=== PATIENT | male | born 1940 | race Caucasian/White ===

== ENCOUNTER 2016-07-29 07:16 | Day surgery (SDC) | payer MEDICARE, BC ==
--- NOTE | ~2016-07-29 | EGD ---
EGD REPORT [facility] [place] [address] [address] NAME: CORNELIUS HUA : [birth year] STATUS : REG [facility] [place] PAT#: [id number] AGE: 76 ADM/REG DATE : 07/29/16 MR#: [id number] REPORT SERV DATE: 07/29/16 DICTATED BY: GIO LIMON DATE: 07/29/16 REPORT STATUS : Draft TRANSCRIBED BY: [facility] DATE: 07/29/16 Endoscopy Center Patient Name: Cornelius Hua Date of : 1940 Attending MD: GIO LIMON MD Procedure Date No Time: 07/29/2016 Procedure: Colonoscopy Indications: Surveillance: Personal history of adenomatous polyps on last colonoscopy > 3 years ago Referring MD: LIAM MAYS Medicines: Propofol per Anesthesia Complications: No immediate complications. Procedure: Pre-Anesthesia Assessment: - ASA Grade Assessment: III - A patient with severe systemic disease. After I obtained informed consent, the scope was passed under direct vision. Throughout the procedure, the patient's blood pressure, pulse, and oxygen saturations were monitored continuously. The CF [id number] was introduced through the anus and advanced to the terminal ileum. The colonoscopy was performed without difficulty. The patient tolerated the procedure well. The quality of the bowel preparation was good. Findings: The perianal and digital rectal examinations were normal. The terminal ileum appeared normal. The colon (entire examined portion) appeared normal. A sessile polyp was found in the cecum. The polyp was 5 mm in size. The polyp was removed with a cold snare. Resection and retrieval were complete. Non-bleeding internal hemorrhoids were found during retroflexion and were mild, small and Grade I (internal hemorrhoids that do not prolapse). Impression: - The examined portion of the ileum was normal. - The entire examined colon is normal. - One 5 mm polyp in the cecum. Resected and retrieved. - Non-bleeding internal hemorrhoids. Recommendation: - Patient has a contact number available for emergencies. The signs and symptoms of potential delayed complications were discussed with the patient. Return to normal activities tomorrow. Written discharge instructions were provided to the patient. - Clear liquid diet today. EGD REPORT [address] [address] NAME: CORNELIUS HUA : [birth year] STATUS : REG [facility]#: [id number] AGE: 76 ADM/REG DATE : 07/29/16 MR#: [id number] REPORT SERV DATE: 07/29/16 DICTATED BY: GIO LIMON DATE: 07/29/16 REPORT STATUS : Draft TRANSCRIBED BY: [employer] DATE: 07/29/16 - diet is clear liquid today, full liquid tomorrow, soft mushy food the next day, and resume usual diet the day after that. - Continue present medications. - Await pathology results. - Repeat colonoscopy in 3 - 5 years for surveillance based on pathology results. - Return to my office as previously scheduled. - Discharge patient to home. Procedure Code(s): --- Professional --- 71263, Colonoscopy, flexible, proximal to splenic flexure; with removal of tumor(s), polyp(s), or other lesion(s) by snare technique Diagnosis Code(s): --- Professional --- K64.0, First degree hemorrhoids D12.0, Benign neoplasm of cecum Z86.010, Personal history of colonic polyps CPT copyright 2013 [employer]. All rights reserved. The codes documented in this report are preliminary and upon manager cath lab review may be revised to meet current compliance requirements. Gio Limon MD GIO LIMON MD 07/29/2016 10:13 AM This report has been signed electronically. Number of Addenda: 0 Note Initiated On: 07/29/2016 9:01 AM Scope Withdrawal Time 0 hours 11 minutes 20 seconds [address] [id number]
--- NOTE | ~2016-07-29 | EGD ---
EGD REPORT [facility] [address] [address] NAME: CORNELIUS HUA : 36 STATUS : [place] [facility] [place] PAT#: [id number] AGE: 76 ADM/REG DATE : 07/29/16 MR#: [id number] REPORT SERV DATE: 07/29/16 DICTATED BY: GIO LIMON DATE: 07/29/16 REPORT STATUS : Draft [facility]ANSCRIBED BY: [facility] DATE: 07/29/16 Endoscopy Center Patient Name: Cornelius Hua Date of : 1940 Attending MD: GIO LIMON MD Procedure Date No Time: 07/29/2016 Procedure: Upper GI endoscopy Indications: Dysphagia, Gastro-esophageal reflux disease Referring MD: LIAM MAYS Medicines: Propofol per Anesthesia Complications: No immediate complications. Procedure: Pre-Anesthesia Assessment: - ASA Grade Assessment: III - A patient with severe systemic disease. After obtaining informed consent, the endoscope was passed under direct vision. Throughout the procedure, the patient's blood pressure, pulse, and oxygen saturations were monitored continuously. The GIF [id number] was introduced through the mouth, and advanced to the third part of duodenum. The upper GI endoscopy was accomplished without difficulty. The patient tolerated the procedure well. Findings: The examined esophagus was normal. A benign-appearing, intrinsic mild stenosis was found at the gastroesophageal junction and was traversed. A guidewire was placed and the scope was withdrawn. Dilation was performed with a Savary dilator with mild resistance at 60 Fr. The esophagus looked satisfactory post dilation A small hiatus hernia was present. Seen on retroflexion, done prior to dilation Diffuse mild inflammation characterized by congestion (edema) and erythema was found in the entire examined stomach. Biopsies were taken with a cold forceps for Helicobacter pylori testing. Localized mild inflammation characterized by congestion (edema) and erythema was found in the duodenal bulb. The 2nd part of the duodenum and 3rd part of the duodenum were normal. Impression: - Normal esophagus. - Benign-appearing esophageal stricture. Dilated. - Hiatus hernia. - Gastritis. Biopsied. - Duodenitis. - Normal 2nd part of the duodenum and 3rd part of the EGD REPORT [address] [place]. [address] NAME: CORNELIUS HUA : [birth year] STATUS : [place] [facility] [place] PAT#: [id number] AGE: 76 ADM/REG DATE : 07/29/16 MR#: [id number] REPORT SERV DATE: 07/29/16 DICTATED BY: GIO LIMON DATE: 07/29/16 REPORT STATUS : Draft TRANSCRIBED BY: [employer] DATE: 07/29/16 duodenum. Recommendation: - Patient has a contact number available for emergencies. The signs and symptoms of potential delayed complications were discussed with the patient. Return to normal activities tomorrow. Written discharge instructions were provided to the patient. - diet is clear liquid today, full liquid tomorrow, soft mushy food the next day, and resume usual diet the day after that. - Await pathology results. - Continue present medications. - Use Prilosec (omeprazole) 40 mg PO daily. - take 30-60 minutes before breakfast or supper - Return to my office as previously scheduled. - Discharge patient to home. Procedure Code(s): --- Professional --- 83244, Esophagogastroduodenoscopy, flexible, transoral; with insertion of guide wire followed by passage of dilator(s) through esophagus over guide wire 86540, Esophagogastroduodenoscopy, flexible, transoral; with biopsy, single or multiple Diagnosis Code(s): --- Professional --- K22.2, Esophageal obstruction K44.9, Diaphragmatic hernia without obstruction or gangrene K29.70, Gastritis, unspecified, without bleeding K29.80, Duodenitis without bleeding R13.10, Dysphagia, unspecified K21.9, Gastro-esophageal reflux disease without esophagitis CPT copyright 2013 [employer]. All rights reserved. The codes documented in this report are preliminary and upon general dentist review may be revised to meet current compliance requirements. Gio Limon MD GIO LIMON MD 07/29/2016 10:11 AM This report has been signed electronically. Number of Addenda: 0 EGD REPORT [facility] [address] [place]. [address] NAME: CORNELIUS HUA : [birth year] STATUS : REG [facility] [place] PAT#: [id number] AGE: 76 ADM/REG DATE : 07/29/16 MR#: [id number] REPORT SERV DATE: 07/29/16 DICTATED BY: GIO LIMON DATE: 07/29/16 REPORT STATUS : Draft [facility]: [facility] DATE: 07/29/16 Note Initiated On: 07/29/2016 9:14 AM Scope Withdrawal Time 0 hours 0 minutes 0 seconds [address] [facility] [place] [address]
[~2016-07-29 07:16] MED LIST: ASAB PO; AVODART PO; CO Q-10100 MG PO; COUMADIN7.5 MG PO; CRESTOR10 PO; CYANO1000T PO; ELIQUIS 5 MG TAB5 MG PO; FLOMAX4 PO; KRILLOIL PO; LAN25 PO; MOVE FREE PO; MULTIPLE VIT PO; PLAVIX PO; TRAZ50 PO; VITAMIN K PO; ZANTAC150 MG PO; ZESTRIL10 MG PO; ZESTRIL30 MG PO; [UNRECOGNIZED DRUG - OTHER] PO
== END 2016-07-29 23:59 | disposition home health service (06) ==
LOC: DMU 07:16
PROVIDERS: Internal Medicine Gastroenterology
PROC: 0D748ZZ Dilation of Esophagogastric Junction, Via Natural or Artificial Opening Endoscopic (ICD-10-PCS; principal; 2016-07-29 08:30)
PROC: 0DB68ZX Excision of Stomach, Via Natural or Artificial Opening Endoscopic, Diagnostic (ICD-10-PCS; 2016-07-29 08:30)
PROC: 0DBH8ZZ Excision of Cecum, Via Natural or Artificial Opening Endoscopic (ICD-10-PCS; 2016-07-29 08:30)
DX: Z12.11 Encounter for screening for malignant neoplasm of colon (principal); D12.0 Benign neoplasm of cecum; K22.2 Esophageal obstruction; K44.9 Diaphragmatic hernia without obstruction or gangrene; K29.80 Duodenitis without bleeding; K64.0 First degree hemorrhoids; I10 Essential (primary) hypertension; K21.9 Gastro-esophageal reflux disease without esophagitis; I48.91 Unspecified atrial fibrillation; Z86.73 Personal history of transient ischemic attack (TIA), and cerebral infarction without residual deficits; Z86.010 Personal history of colon polyps; Z98.890 Other specified postprocedural states
CPT/HCPCS: 88305